=== PATIENT | male | born 1985 | race Caucasian/White ===

== ENCOUNTER 2020-10-20 09:56 | Day surgery (SDC) | payer MEDICAID ==
[2020-10-14 14:41] LABS: BASOPHILS % (AUTO) 0.5 % (0-1); EOSINOPHILS # (AUTO) 0.5 X10'3 (0-0.9); EOSINOPHILS % (AUTO) 8.1 % (0-6); MEAN CORPUSCULAR HGB CONC 34.4 g/dL (33.0-36.5); MEAN CORPUSCULAR VOLUME 87.2 FL (78-98); MEAN PLATELET VOLUME 7.7 FL (7.4-10.4); MONOCYTES # (AUTO) 0.6 X10'3 (0-0.9); MONOCYTES % (AUTO) 10.6 % (2-12); NEUTROPHILS # (AUTO) 2.7 X10'3 (1.8-7.7); NEUTROPHILS % (AUTO) 46.8 % (42-75); PRE OP HEMATOCRIT 44.7 % (42.0-52.0); PRE OP HEMOGLOBIN 15.4 g/dL (14.0-17.9); PRE OP PLATELET COUNT 252 X10'3 (140-440); RED BLOOD COUNT 5.13 X10'6 (4.70-6.10)
[2020-10-14 14:59] LABS: ALBUMIN/GLOBULIN RATIO 1.1 (1.1-1.5); ALKALINE PHOSPHATASE 61 IU/L (46-116); BLOOD UREA NITROGEN 14 MG/DL (7-18); BUN/CREATININE RATIO 14.9 (5.4-32.0); CALCIUM 8.7 MG/DL (8.5-10.1); CHLORIDE 104 MMOL/L (99-107); CREATININE 0.94 MG/DL (0.60-1.10); PRE OP ALT 27 U/L (30-65); PRE OP ANION GAP 7 (8-16); PRE OP AST 16 U/L (10-37); PRE OP BILIRUB, TOTAL 0.4 MG/DL (0.0-1.0); PRE OP GLUCOSE 92 MG/DL (70-104); PRE OP POTASSIUM 4.2 MMOL/L (3.4-5.1); PRE OP SODIUM 140 MMOL/L (135-145); TOTAL CARBON DIOXIDE 29.2 MMOL/L (24-32); TOTAL PROTEIN 7.7 G/DL (6.4-8.2); eGFR > 90 ML/MIN
[~2020-10-20] VITALS: Ht 172.7 cm; Wt 73.9 kg
[2020-10-20] VITALS (15 sets, daily range): BP systolic 114–142; BP diastolic 60–97
[~2020-10-20 09:56] MED LIST: NO HOME MEDS; cefazolin/dext.iso 2gm/100ml IV ONE; famotidine 20mg tablet PO ONE; ringers solution, lacted 1,000 ML IV SCH
[2020-10-20] MEDS ORDERED: BUPIVAcaine/PF 2.5mg/ml (0.25%) 10ml vial ONE (10:26)
[2020-10-20] MEDS ORDERED: LIDOcaine 1% 30ml preserv. free vial ONE (10:26)
[2020-10-20] MEDS ORDERED: sevoflurane 250ml liquid IH ONE (10:34)
[2020-10-20] MEDS ORDERED: fentaNYL/PF 50MCG/1 ML 2ML syringe ONE (10:38)
[2020-10-20] MEDS ORDERED: midazolam 1 mg/ML 2ml injection ONE (10:38)
[2020-10-20] MEDS ORDERED: propofol inj 20 ML IV ONE (10:41)
[2020-10-20] MEDS ORDERED: proCHLORperazine 10 MG/2 ml inj IV PRN (11:20)
[2020-10-20] MEDS ORDERED: morphine 4 MG/ML inj SYRINge IV PRN (11:20)
[2020-10-20] MEDS ORDERED: meperidine/PF 25mg/ml syringe IV PRN ×3 (11:20)
[2020-10-20] MEDS ORDERED: ringers solution, lacted 1,000 ML IV SCH (11:20)
[2020-10-20] MEDS ORDERED: ondansetron/PF 4mg/2ml inj IV PRN (11:20)
[2020-10-20] MEDS ORDERED: morphine 2 MG/ML inj. syringe IV PRN (11:20)
[2020-10-20] MEDS ORDERED: neostigmine methylsulfate 1 MG/ML 10ml vial ONE (12:22)
[2020-10-20] MEDS ORDERED: glycopyrrolate 0.2mg/ml inj ONE (12:22)
[2020-10-20] MEDS ORDERED: rocuronium 10mg/ml inj IV ONE (12:22)
[2020-10-20] MEDS ORDERED: dexamethasone sod phosphate 4mg/ml inj. ONE (12:23)
[2020-10-20] MEDS ORDERED: ondansetron/PF 4mg/2ml inj ONE (12:23)
--- NOTE | 2020-10-20 12:33 | NUR ---
Received from OR via [facility], accompanied by Anesthesiologist DR LOYA and report given by Anesthesiolgist AND [employer] B[employer] DIRECTOR. PT DROWSY, ARMIN PAIN, ELROY ABDOMEN W/3 LAP SITES W/BANDAIDS CDI. Addendum: 10/20/20 at 1306 by Cierra Levi RN Amended: Links added.
[2020-10-20] MEDS ORDERED: HYDROcodone/acetaminophen 5mg/325mg tablet PO PRN (12:35)
[2020-10-20] MEDS ORDERED: HYDROcodone/acetaminophen 10/325mg tab PO PRN (12:35)
== END 2020-10-20 15:33 | disposition home or self-care (01) ==
LOC: PAS 09:56
PROVIDERS: ATTEND Surgery
DX: K43.2 Incisional hernia without obstruction or gangrene (principal); K40.91 Unilateral inguinal hernia, without obstruction or gangrene, recurrent; Z98.890 Other specified postprocedural states; Z86.14 Personal history of Methicillin resistant Staphylococcus aureus infection; Z86.19 Personal history of other infectious and parasitic diseases; Z20.822 Contact with and (suspected) exposure to COVID-19; Z79.899 Other long term (current) drug therapy
CPT/HCPCS: 36415; 49565; 49568; 49651; 80053; 82948; 85025; C1781; J0780; J1100; J2001; J2175; J2250; J2405; J2704; J2710; J3010; J3490; J7120; S2900; U0003; U0005; Z7506; Z7508; Z7512; A4215; A4618